=== PATIENT | male | born 1950 | race Caucasian/White ===

== ENCOUNTER → 2018-05-09 | Outpatient (CLI) | payer BC ==
[~2018-05-09] MED LIST: AMLO5TAB2 PO; HYDR1CAP2 PO; LISI20TA; LISI40TA PO; OMEP20CA6 PO
--- NOTE | 2018-05-09 11:32 | Diagnostic Imaging Report ---
PROCEDURE: US right lower extremity venous. TECHNIQUE: Multiple real-time grayscale images were obtained over the right lower extremity in various projections. Additional duplex Doppler and color Doppler images were also obtained. INDICATION: Right lower extremity swelling. EXAMINATION: Grayscale and color Doppler evaluation of the deep veins of the right lower extremity were performed with waveform analysis. FINDINGS: Continuous venous flow is present. No intraluminal filling defect is identified. There is normal compressibility and response to augmentation. No abnormal perivascular fluid collection is identified. IMPRESSION: No ultrasound evidence of right lower extremity deep venous thrombosis. Dictated by: Dictated on workstation # [id number]
== END ==
LOC: RAD 10:46
PROVIDERS: ATTEND Internal Medicine
DX: R60.0 Localized edema (principal)

== ENCOUNTER → 2019-01-04 | Outpatient (CLI) | payer BC ==
[2019-01-04 15:59] LABS: BUN/CREATININE RATIO 18; CALCIUM 9.7 MG/DL (8.5-10.1); CARBON DIOXIDE 26 MMOL/L (21-32); CHLORIDE 109 MMOL/L (98-107); CREATININE SERUM 0.91 MG/DL (0.60-1.30); GFR ESTIMATED > 60; GLUCOSE 94 MG/DL (70-105); POTASSIUM 3.9 MMOL/L (3.6-5.0); SODIUM 140 MMOL/L (135-145)
== END ==
LOC: LAB 15:22
PROVIDERS: ATTEND Internal Medicine
DX: R31.0 Gross hematuria (principal)
CPT/HCPCS: 36415; 80048

== ENCOUNTER → 2019-01-05 | Outpatient (CLI) | payer BC ==
--- NOTE | 2019-01-05 10:27 | Diagnostic Imaging Report ---
PROCEDURE: CT abdomen and pelvis with and without contrast. TECHNIQUE: Precontrast acquisitions were acquired through the abdomen and pelvis. Multiple contiguous axial images were obtained through the abdomen and pelvis after the administration of intravenous contrast. Auto Exposure Controls were utilized during the CT exam to meet ALARA standards for radiation dose reduction. INDICATION: Hematuria FINDINGS: Lung bases are clear. Liver appears normal. Gallbladder is present. Pancreas is normal. Spleen is not enlarged. Adrenals are normal. Kidneys appear normal. Ureters are unremarkable. Urinary bladder appears normal. There is diverticulosis of the colon. There is no evidence of diverticulitis. The appendix is normal. Small bowel is not dilated. There is a small umbilical hernia containing fat. Prostate is not enlarged. IMPRESSION: Uncomplicated diverticulosis of the colon. Small umbilical hernia. There are no findings to account for the clinical presentation of hematuria. Dictated by: Dictated on workstation # [id number]
== END ==
LOC: RAD 07:36
PROVIDERS: ATTEND Internal Medicine
DX: K57.30 Diverticulosis of large intestine without perforation or abscess without bleeding (principal); K42.9 Umbilical hernia without obstruction or gangrene; R31.0 Gross hematuria
CPT/HCPCS: 74178

== ENCOUNTER → 2019-06-12 | Outpatient (CLI) | payer BC ==
--- NOTE | 2019-06-12 16:14 | Diagnostic Imaging Report ---
CLINICAL INDICATION: Patient reports right-sided back pain x2 weeks. Low back pain with sciatica, right side; segmental somatic dysfunction of the sacrum. EXAM: X-ray of the lumbar spine, five views. COMPARISON: None. FINDINGS: There is no acute lumbar spine fracture. There is left curvature of the thoracolumbar spine. There is 3 mm of grade 1 retrolisthesis of L4 on L5 and 4 mm of grade 1 anterolisthesis of L5 on S1. There is moderate loss of intervertebral disc height at the L4-L5 and L5-S1 levels. There is mild loss of intervertebral disc height at the L2-L3 and L3-L4 levels. There are lumbar spine degenerative spurs and facet arthropathy. Sacroiliac joints show no significant abnormality. IMPRESSION: 1: There is no acute lumbar spine fracture. 2: There is grade 1 retrolisthesis of L4 on L5 and a grade 1 anterolisthesis of L5 on S1. 3: There is levoscoliosis of the lumbar spine with multilevel degenerative disease. Dictated by: Dictated on workstation # [id number]
== END ==
LOC: RAD 15:00
PROVIDERS: ATTEND Internal Medicine
DX: M43.17 Spondylolisthesis, lumbosacral region (principal); M47.816 Spondylosis without myelopathy or radiculopathy, lumbar region; M41.86 Other forms of scoliosis, lumbar region; M54.41 Lumbago with sciatica, right side; M99.04 Segmental and somatic dysfunction of sacral region; M99.03 Segmental and somatic dysfunction of lumbar region
CPT/HCPCS: 72110

== ENCOUNTER → 2019-06-30 | Outpatient (CLI) | payer BC ==
--- NOTE | 2019-06-30 10:51 | Diagnostic Imaging Report ---
PROCEDURE: MRI lumbar spine. TECHNIQUE: Multiplanar, multisequence MRI of the lumbar spine was performed without contrast. INDICATION: Chronic low back pain with no known injury. COMPARISON: Radiographs from 06/12/2019. FINDINGS: The last well-formed disc space was labelled L5-S1 for the purposes of this examination. There is mild right convex curvature of the lumbar spine centered at L1. There is grade 1 anterolisthesis at L5-S1. There is multilevel disc height loss and decreased T2 signal, most pronounced at L5-S1. Vertebral body heights are preserved. There are Schmorl's nodes at L3 and L4. No acute fracture is seen. The conus terminates in normal position. The soft tissues about the lumbar spine are unremarkable. T12-L1: No significant disc bulge. No spinal canal or foraminal stenosis. L1-L2: No significant disc bulge. No spinal canal or foraminal stenosis. L2-L3: Diffuse disc bulge, facet arthropathy and ligamentous infolding. No spinal canal stenosis. Mild bilateral foraminal narrowing. L3-L4: Diffuse disc bulge, facet arthropathy, ligamentous infolding. No spinal canal stenosis. No right foraminal stenosis. Mild left foraminal narrowing. L4-L5: Right foraminal disc protrusion superimposed on a diffuse disc bulge. Marked effacement of the right lateral recess. This does appear to contact the right L5 nerve root. No spinal canal stenosis. Severe right foraminal stenosis. Mild to moderate left foraminal stenosis. L5-S1: Anterolisthesis, diffuse disc bulge. No spinal canal stenosis. Severe right foraminal stenosis. Mild left foraminal narrowing. There are bilateral L5 pars defects. IMPRESSION: 1. Moderate multilevel degenerative changes, most pronounced at L4-L5 and L5-S1. No acute fracture is seen. 2. Severe right foraminal stenosis at L4-L5 and L5-S1. Disc protrusion at L4-L5 appears to contact the right L5 nerve root. 3. Grade I anterolisthesis at L5-S1 with bilateral L5 pars defects. Dictated by: Dictated on workstation # [id number]
== END ==
LOC: RAD 07:56
PROVIDERS: ATTEND Internal Medicine
DX: M47.817 Spondylosis without myelopathy or radiculopathy, lumbosacral region (principal); M48.07 Spinal stenosis, lumbosacral region; M51.16 Intervertebral disc disorders with radiculopathy, lumbar region; M43.17 Spondylolisthesis, lumbosacral region
CPT/HCPCS: 72148

== ENCOUNTER → 2020-03-07 | Outpatient (CLI) | payer BC ==
--- NOTE | 2020-03-07 18:11 | Diagnostic Imaging Report ---
INDICATION: Ankle pain. Swelling. COMPARISON: None FINDINGS: 3 radiographic views of the right ankle were obtained. There is gross deformity of the distal fibula. This, however, has a chronic appearance consistent with old healed fracture. No acute osseous abnormalities seen on today's exam. Joint spaces are appropriate. No unexpected radiopaque foreign bodies are seen. IMPRESSION: 1. Findings consistent with old healed fracture of the distal fibula. 2. No acute appearing fracture or dislocation of the right ankle. Dictated by: Dictated on workstation # [id number]
== END ==
LOC: RAD 15:05
PROVIDERS: ATTEND Internal Medicine
DX: M25.471 Effusion, right ankle (principal)
CPT/HCPCS: 73610

== ENCOUNTER → 2022-09-17 | Outpatient (CLI) | payer SELFPAY ==
--- NOTE | 2022-09-17 16:06 | Diagnostic Imaging Report ---
INDICATION: Family history of coronary artery disease, screening exam. TECHNIQUE: CT cardiac calcium score study was performed with noncontrast images of the heart followed by calculation of cardiac score. FINDINGS: Raw data images demonstrate the aorta to be normal in caliber. No overtly enlarged nodes are visualized in the mediastinum. Lung mullen show no focal lesions. The entirety of the lungs are not included on this study. There is minimal coronary artery calcification visualized in the LAD territory without significant calcium elsewhere. There is minimal calcification of the aortic valve. Calcium score obtained was 1.53 in the LAD and 0 in the left main, circumflex coronary artery and RCA. IMPRESSION: CT coronary calcium score study performed demonstrates minimal coronary calcium burden with some minimal plaquing in the LAD. Dictated by: Dictated on workstation # [id number]
== END ==
LOC: RAD 09:30
PROVIDERS: ATTEND Internal Medicine
DX: Z13.6 Encounter for screening for cardiovascular disorders (principal); Z82.49 Family history of ischemic heart disease and other diseases of the circulatory system
CPT/HCPCS: 75571

== ENCOUNTER 2023-07-24 08:25 | Emergency (ER) | payer MEDICARE, OTHER ==
--- NOTE | 2023-07-24 08:49 | ED EENT ---
History of Present Illness General Chief Complaint: Facial Problems Stated Complaint: FACIAL SWELLING Nursing Triage Note: PT AMB TO [facility] 7 PT STATES HAS SWELLING IN LOWER LIP AND L JAW. PT STATE BIT LIP YESTERDAY. STARTED YESTERDAY. BETTER THIS AM, BUT STILL SWOLLEN. PT HAD SHINGLES SHOT ON WEDNESDAY. PT DENIES SOB. Source: patient Exam Limitations: no limitations History of Present Illness Date Seen by Provider: Jul 24, 2023 Time Seen by Provider: 08:32 Initial Comments 73-year-old male presents for lower lip swelling, left jaw swelling. Symptoms started yesterday afternoon when he was having dinner and bit his lip. He states it swelled significantly bilateral lower lip and left, right jaw. He denies any difficulty breathing. He states he slept in a chair last night just to be safe and his states she walked into the evening and his lip swelling is actually improved. Notably he got his first shingles shot on . He is also on lisinopril for blood pressure. Recent other medication changes. He has no history of lip swelling All other systems reviewed negative except for HPI Allergies and Home Medications Allergies Coded Allergies: No Known Drug Allergies (Unverified , 01/06/09) Patient Home Medication List Home Medication List Reviewed: Yes Amlodipine Besylate (Amlodipine Besylate) 5 Mg Tablet, 5 MG PO DAILY, (Reported) Entered as Reported by: VIOLETA LAU on 04/28/13911 Lisinopril (Prinivil) 40 Mg Tablet, 40 MG PO DAILY, (Reported) Entered as Reported by: VIOLETA LAU on 04/28/13911 Omeprazole (Prilosec) 20 Mg Capsule.dr, 20 MG PO DAILY, (Reported) Entered as Reported by: VIOLETA LAU on 04/28/13913 Review of Systems Review of Systems Constitutional: see HPI Past Pvaqohg-Afndeg-Tyezkx Hx Patient Social History Tobacco Use?: No Substance use?: No Alcohol Use?: No Pt feels they are or have been: No Immunizations Up To Date Tetanus Booster (TDap): Unknown Seasonal Allergies Seasonal Allergies: No Past Medical History Surgery/Hospitalization HX: HTN Reproductive Disorders: No Sexually Transmitted Disease: No HIV/AIDS: No Adverse Reaction/Blood Tranf: No Family Medical History No Pertinent Family Hx Physical Exam Vital Signs Vital Signs - First Documented 07/24/23 08:30 Temp 36.7 Pulse 93 Resp 18 B/P (MAP) 174/104 (127) Pulse Ox 98 Height, Weight, BMI Height: '" Weight: 176lbs. 6.4oz. [id number]; BMI Method:Stated General Appearance: WD/WN, other (Very mild swelling of his lower lip bilaterally and some very mild swelling in his left face just lateral to his lips and very mildly on his right face in the same region. He has no intraoral swelling, no lingular swelling or palatal swelling. Uvula is midline.) Eyes: bilateral eye normal inspection, bilateral eye PERRL, bilateral eye EOMI Ears: bilateral ear auricle normal, bilateral ear canal normal, bilateral ear TM normal Nose: normal inspection Mouth/Throat: normal mouth inspection, other (No trismus. No submandibular pain or swelling, firmness. Normal voice) Neck: non-tender, supple, normal inspection Cardiovascular: regular rate, rhythm, no murmur Respiratory: chest non-tender, lungs clear, normal breath sounds Gastrointestinal: non tender, soft Skin: normal color, warm/dry Progress/Results/Core Measures Results/Orders Vital Signs/I&O 07/24/23 08:30 Temp 36.7 Pulse 93 Resp 18 B/P (MAP) 174/104 (127) Pulse Ox 98 Blood Pressure Mean: 127 Departure Communication (Admissions) Patient is hemodynamically stable. Per his and his 's report his swelling has dramatically improved. He has minimal lip swelling on exam at this time. There is no evidence for Nate's angina or deep space infection, or infection of any type at this time. Evidence for dental abscess. I believe he likely had angioedema, unclear whether it is related to shingles vaccination, lisinopril or spontaneous. Discussed this with the patient at length. He is slated to have a subsequent shingles vaccine in 6 months. I advised that he discuss this with his doctor. I did advise that if he has no further exposures never has swelling again that he should stop taking lisinopril. He acknowledges understanding. He is given strict return precautions and discharged home in stable condition with steroid medication Impression Primary Impression: Angioedema Qualified Codes: T78.3XXA - Angioneurotic edema, initial encounter Disposition: 01 HOME, SELF-CARE Condition: Stable Departure-Patient Inst. Referrals: REBEKAH MARISCAL DO (PCP/Family) Primary Care Physician Patient Instructions: Angioedema (DC) Add. Discharge Instructions: It is unclear if the symptoms you had are from lisinopril or from the shingles vaccination or something entirely different. Take the steroid medication as prescribed daily in the mornings until it is gone. I recommend you discuss subsequent shingles shot with your doctor. If you have recurrence of lip swelling I recommend you come back to the emergency department immediately. Call 911 and have an ambulance bring you to the emergency department if you have any difficulty breathing. I would discuss with your doctor the symptoms that you had that way they are documented for the future. If you have any lip swelling in the future without any other exposures I recommend you stop taking lisinopril. All discharge instructions reviewed with patient and/or family. Voiced understanding. Scripts Prednisone (Prednisone) 50 Mg Tab 50 MG PO DAILY for 3 Days, #3 TAB Prov: BAN WALLACE DO 07/24/23 BAN WALLACE DO Jul 24, 2023 08:49
[2023-07-24] MEDS ORDERED: PRD50T PO (08:50)
[2023-07-24 09:05] VITALS: BP 174/104
== END 2023-07-24 09:05 | disposition home or self-care (01) ==
LOC: EDUNIT# 08:25 → ER 08:28
DX: T78.3XXA Angioneurotic edema, initial encounter (principal); I10 Essential (primary) hypertension; Z79.899 Other long term (current) drug therapy
CPT/HCPCS: 99283